=== PATIENT | male | born 1995 | race Caucasian/White ===

== ENCOUNTER 2016-12-13 19:57 | Emergency (ER) | payer BC, OTHER ==
[2016-12-13 20:09] VITALS: BP 126/67; PULSE 89; TEMP 98.2; BMI 27.4
--- NOTE | 2016-12-13 22:00 | PDOC ---
History of Present Illness - General Chief Complaint: Sore Throat Stated Complaint: SORE THROAT Time Seen by Provider: 12/13/16 20:00 - History of Present Illness Initial Comments: This 21-year-old man presents with a four-day history of progressive sore throat. Patient states that he also has some left-sided ear pain/fullness. He had some subjective fever a few days ago which has now resolved ( never measured ). No known exposure to strep pharyngitis. No recent travel. He denies weakness/muscle aches/generalized fatigue. He has not had cough or gastrointestinal issues. Past History - Past Medical History Allergies/Adverse Reactions: Allergies Allergy/AdvReac Type Severity Reaction Status Date / Time No Known Allergies Allergy Verified 12/13/16 20:05 Home Medications: Ambulatory Orders Amoxicillin - [Amoxicillin 500mg Capsule -] 500 mg PO BID #20 capsule 12/13/16 Suicide Attempt (Hx): No Other medical history: denies - Psycho/Social/Smoking Cessation Hx Anxiety: No Suicidal Ideation: No Smoking History: Never smoked Have you smoked in the past 12 months: Yes Number of Cigarettes Smoked Daily: 20 Information on smoking cessation initiated: Yes Hx Alcohol Use: (weekends) Drug/Substance Use Hx: No Substance Use Type: None Review of Systems - Review of Systems Able to Perform ROS?: Yes Comments:: 12 point review of systems is negative except for what is noted in the history of present illness *Physical Exam - Vital Signs Last Vital Signs Temp Pulse Resp BP Pulse Ox 98.2 F 89 18 126/67 100 12/13/16 19:57 12/13/16 19:57 12/13/16 19:57 12/13/16 19:57 12/13/16 19:57 - Physical Exam Comments: GENERAL: Young adult male, alert and oriented 3, speaking in somewhat muffled voice but not drooling; no acute distress HEAD: Normal with no signs of trauma. EYES: PERRLA, EOMI, sclera anicteric, conjunctiva clear. ENT: Ears normal, nares patent Pharynx markedly erythematous with 1+ tonsillar edema bilaterally; exudative patches present (right> left) NECK: Normal range of motion, supple; 1+ mildly tender anterior cervical adenopathy bilaterally; no JVD or masses. LUNGS: Breath sounds equal, clear to auscultation bilaterally. No wheezes, and no crackles. HEART:Regular rate and rhythm, normal S1 and S2 without murmur, rub or gallop. ABDOMEN:.normal bowel sounds No guarding,tenderness or rebound.No masses No distention. EXTREMITIES: Normal range of motion, no edema. No clubbing or cyanosis. No erythema, or tenderness. NEUROLOGICAL: Cranial nerves II through XII grossly intact. Normal speech. No focal neurological deficits. MUSCULOSKELETAL: Back non-tender to palpation, no CVA tenderness SKIN: Warm, Dry, normal turgor, no rashes or lesions noted. ED Treatment Course - ADDITIONAL ORDERS Additional order review: 12/13/16 21:45 Group A Strep Rapid Antigen - Final Throat Medical Decision Making - Medical Decision Making Quick strep/throat culture sent. Quick strep negative. Although quick strep is negative, because of patient's exudative pharyngitis, amoxicillin 500 mg will be started with first dose given here in the emergency room. (Doubt acute infectious mononucleosis with patient's lack of fatigue/ malaise and lack of generalized lymphadenopathy) Full 10 day course of amoxicillin 500 mg twice a day will be sent to patient's pharmacy. Patient will be contacted if throat culture is negative. He will return to the emergency room if he has more severe pain or develops high fever, difficulty swallowing. *DC/Admit/Observation/Transfer Diagnosis at time of Disposition: Acute pharyngitis Qualifiers: Pharyngitis/tonsillitis etiology: unspecified etiology Qualified Code(s): J02.9 - Acute pharyngitis, unspecified - Discharge Dispostion Disposition: HOME Condition at time of disposition: Stable - Prescriptions Prescriptions: Amoxicillin - [Amoxicillin 500mg Capsule -] 500 mg PO BID #20 capsule - Patient Instructions Printed Discharge Instructions: DI for Pharyngitis/Tonsillopharyngitis -- Adult Additional Instructions: Drink plenty of fluids No work for the next 2 days Amoxicillin 500 mg twice a day for 10 days Ibuprofen/naproxen/acetaminophen as needed for pain you will be contacted if throat culture negative for strep See your doctor if throat pain not improved within 2-3 days return to ER if you have difficulty swallowing or develop high fever - Post Discharge Activity Work/School Note: Back to Work
[2016-12-13] MEDS ORDERED: AMOXICILLIN 500 MG CAPSULE (FP) PO ONE (22:19)
[2016-12-13] MEDS ORDERED: AMOXICILLIN 250 MG CAPSULE ONE (22:22)
== END 2016-12-13 22:27 | disposition home or self-care (01) ==
LOC: FER 19:57
DX: J02.9 Acute pharyngitis, unspecified (principal); F17.210 Nicotine dependence, cigarettes, uncomplicated
CPT/HCPCS: 87070; 87430; 99282-25

== ENCOUNTER 2018-08-01 08:48 | Emergency (ER) | payer BC ==
[2018-08-01 09:05] VITALS: BP 145/77; PULSE 80; TEMP 98.2; BMI 27.8
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
[2018-08-01 09:32] LABS: URINE APPEARANCE CLEAR; URINE BILIRUBIN NEGATIVE (<2.0 mg/dL); URINE COLOR LTYELLOW; URINE GLUCOSE (UA) NEGATIVE (NEGATIVE); URINE KETONE NEGATIVE (NEGATIVE); URINE LEUK ESTERASE NEGATIVE (NEGATIVE); URINE NITRITE NEGATIVE (NEGATIVE); URINE PROTEIN NEGATIVE (NEGATIVE); URINE UROBILINOGEN NEGATIVE mg/dL (0.2-1.0)
[2018-08-01] MEDS ORDERED: IBUPROFEN 600 MG TABLET (FP) PO ONE ×2 (09:49→09:50)
== END 2018-08-01 10:03 | disposition home or self-care (01) ==
LOC: JERFT 08:48
DX: S30.0XXA Contusion of lower back and pelvis, initial encounter (principal); S30.1XXA Contusion of abdominal wall, initial encounter; V04.10XA Pedestrian on foot injured in collision with heavy transport vehicle or bus in traffic accident, initial encounter; Y92.414 Local residential or business street as the place of occurrence of the external cause; Y93.89 Activity, other specified; Y99.0 Civilian activity done for income or pay
CPT/HCPCS: 71101-TC-RT-FY; 81003; 99281-25

== ENCOUNTER 2019-04-04 12:04 | Emergency (ER) | payer BC ==
[2019-04-04 12:13] VITALS: BP 140/85; PULSE 96; TEMP 98; BMI 27.8
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
== END 2019-04-04 12:53 | disposition home or self-care (01) ==
LOC: JERFT 12:04
DX: S16.1XXS Strain of muscle, fascia and tendon at neck level, sequela (principal); M54.2 Cervicalgia; M62.838 Other muscle spasm; V89.2XXS Person injured in unspecified motor-vehicle accident, traffic, sequela; F17.210 Nicotine dependence, cigarettes, uncomplicated
CPT/HCPCS: 99281-25

== ENCOUNTER 2019-08-10 18:30 | Emergency (ER) | payer OTHER ==
--- NOTE | 2019-08-10 18:47 | PDOC ---
Rapid Medical Evaluation Time Seen by Provider: 08/10/19 18:44 Medical Evaluation: Allergies Allergy/AdvReac Type Severity Reaction Status Date / Time No Known Allergies Allergy Verified 04/04/19 12:13 08/10/19 18:44 I have performed a brief in-person evaluation of this patient. The patient presents with a chief complaint of: Pain to R forearm s/p FOOSH injury Pertinent physical exam findings: unable to assess, patient states he cannot remove arm from sleeve due to pain I have ordered the following: wrist/forearm/elbow xray The patient will proceed to the ED for further evaluation. Discharge Disposition - Diagnosis Arm pain - Referrals - Patient Instructions - Post Discharge Activity
[2019-08-10 18:48] VITALS: BP 119/64; PULSE 94; TEMP 98; BMI 27.8
[2019-08-10] MEDS ORDERED: KETOROLAC TROMETHAMINE 30 MG/1 ML VIAL IM ONE (19:45)
[2019-08-10] MEDS ORDERED: KETOROLAC TROMETHAMINE 30 MG/1 ML VIAL ONE (19:46)
--- NOTE | 2019-08-10 19:49 | PDOC ---
History of Present Illness - General Chief Complaint: Bone Injury Stated Complaint: RT ELBOW PAIN Time Seen by Provider: 08/10/19 18:44 History Source: Patient Exam Limitations: Clinical Condition - History of Present Illness Initial Comments: 08/10/19 20:02 Patient with no significant past medical history present with complaint of pain to right elbow status post slip and fall over a shovel while at work and falling on outstretched hand prior to arrival. Denies hitting head or loss of consciousness. Patient is supporting right elbow with complaint of pain to dorsal aspect of right elbow. Denies any other symptoms Occurred: reports: just prior to arrival Past History - Past Medical History Allergies/Adverse Reactions: Allergies Allergy/AdvReac Type Severity Reaction Status Date / Time No Known Allergies Allergy Verified 04/04/19 12:13 Home Medications: Ambulatory Orders Ibuprofen 800 mg PO Q8H PRN #20 tablet 08/10/19 COPD: No - Immunization History Immunization Up to Date: No - Psycho Social/Smoking Cessation Hx Smoking History: Never smoked Have you smoked in the past 12 months: No Number of Cigarettes Smoked Daily: 10 Information on smoking cessation initiated: No Hx Alcohol Use: No Drug/Substance Use Hx: No Substance Use Type: None Review of Systems - Review of Systems Able to Perform ROS?: Yes Is the patient limited Wolof proficient: No Constitutional: No: Chills, Fever, Malaise HEENTM: No: Symptoms Reported, See HPI, Eye Pain, Blurred Vision, Tearing, Recent change in vision, Double Vision, Cataracts, Ear Pain, Ocular Prothesis, Ear Discharge, Nose Pain, Nose Congestion, Tinnitus, Nose Bleeding, Hearing Loss, Throat Pain, Throat Swelling, Mouth Pain, Dental Problems, Difficulty Swallowing, Mouth Swelling, Other Respiratory: No: Symptoms reported, See HPI, Cough, Orthopnea, Shortness of Breath, SOB with Exertion, SOB at Rest, Stridor, Wheezing, Productive cough, Hemoptysis, Other ABD/GI: No: Symptoms Reported Musculoskeletal: Yes: Symptoms Reported, See HPI, Joint Pain (pain to right elbow), Joint Swelling (righ elbow), Muscle Pain (pain to right forearm) Integumentary: No: Symptoms Reported, Bruising Neurological: No: Symptoms reported All Other Systems: Reviewed and Negative *Physical Exam - Vital Signs Last Vital Signs Temp Pulse Resp BP Pulse Ox 98.0 F 94 H 18 119/64 100 03/05/20 18:46 08/10/19 18:46 08/10/19 18:46 08/10/19 18:46 08/10/19 18:46 - Physical Exam 08/10/19 20:06 GENERAL: Well developed, well nourished. Awake and alert in mild acute distress supporting right elbow with left hand. PULMONARY: No evidence of respiratory distress. MUSCULOSKELETAL : Moderate tenderness over olecranon of right elbow. No tenderness to right wrist or hands. Mild tenderness to dorsal aspect of right proximal forearm. No visible deformity SKIN: Warm and dry. Normal capillary refill. Mild swelling to olecranon of right elbow. No ecchymosis NEUROLOGICAL: Alert, awake, appropriate. No motor deficits in the lower extremities. Gait is normal without ataxia. PSYCHIATRIC: Cooperative. Good eye contact. Appropriate mood and affect. General Appearance: Yes: Nourished, Appropriately Dressed, Mild Distress Procedures - Splinting Splint Location: Right: Elbow Pre-Proc Neuro Vasc Exam: normal Hand-Made Type: orthoglass Splint Type: Yes: Long Arm Post-Proc Neuro Vasc Exam: normal Kash Bandage: yes, 3" Sling: Yes Complications: No Post splint xray: No Good repositioning: Yes Medical Decision Making - Medical Decision Making 08/10/19 20:03 Patient with no significant past medical history present with complaint of pain to right elbow status post slip and fall over a shovel while at work and falling on outstretched hand prior to arrival. Denies hitting head or loss of consciousness. Patient is supporting right elbow with complaint of pain to dorsal aspect of right elbow. Denies any other symptoms Exam significant for moderate tenderness to olecranon of right elbow. No tenderness to right wrist or hand. Mild tenderness over dorsal aspect of right forearm. No visible deformity. Patient supporting right elbow in pain. X-ray of right hand, forearm and elbow shows hairline radial head fracture with sail sign. No acute deformity or fracture to hand or wrist. Patient splinted in posterior short arm splint in flexion and given sling to help support elbow. Toradol 30 mg given for pain. Patient stable for discharge on Motrin 800 PRN for pain with advised to keep hand elevated and follow-up with orthopedics for radial head fracture Discharge - Discharge Information Problems reviewed: Yes Clinical Impression/Diagnosis: Arm pain Qualifiers: Laterality: right Qualified Code(s): M79.601 - Pain in right arm Radial head fracture, closed Qualifiers: Encounter type: initial encounter Fracture alignment: nondisplaced Laterality: right Qualified Code(s): S52.124A - Nondisplaced fracture of head of right radius, initial encounter for closed fracture Condition: Stable Disposition: HOME - Admission No - Additional Discharge Information Prescriptions: Ibuprofen 800 mg PO Q8H PRN #20 tablet PRN Reason: pain - Follow up/Referral Referrals: Reyes Morales DO [Staff Physician] - - Patient Discharge Instructions Patient Printed Discharge Instructions: DI for Elbow Fracture Additional Instructions: X-ray of your elbow shows hairline radial head nondisplaced fracture. Keep provided splint on until completed follow-up. Take prescribed Motrin as needed for pain. Use provided sling to help support right elbow. Follow-up referred to orthopedics - Post Discharge Activity Work/Back to School Note: Back to Work
== END 2019-08-10 20:05 | disposition home or self-care (01) ==
LOC: JERFT 18:30
PROC: 2W38X1Z Immobilization of Right Upper Extremity using Splint (ICD-10-PCS; principal; 2019-08-10)
DX: S52.124A Nondisplaced fracture of head of right radius, initial encounter for closed fracture (principal); W18.09XA Striking against other object with subsequent fall, initial encounter; Y93.89 Activity, other specified; Y92.69 Other specified industrial and construction area as the place of occurrence of the external cause; Y99.0 Civilian activity done for income or pay
CPT/HCPCS: 73070-TC-RT-FY; 73090-TC-RT-FY; 73110-TC-RT-FY; 73130-TC-RT-FY; 99284-25

== ENCOUNTER 2022-05-31 17:37 | Emergency (ER) | payer SELFPAY ==
[2022-05-31 18:02] VITALS: BP 123/70; PULSE 93; RESP 18; TEMP 99.4; BMI 29.2
[2022-05-31] MEDS ORDERED: IBUPROFEN 400 MG TABLET (FP) PO ONE ×2 (18:57→19:16)
== END 2022-05-31 20:23 | disposition home or self-care (01) ==
LOC: JER 17:37
DX: U07.1 COVID-19 (principal)
CPT/HCPCS: 0241U-QW; 99283-25

== ENCOUNTER 2022-08-30 16:02 | Inpatient (IN) | payer BC ==
[2022-08-30] MEDS ORDERED: SODIUM CHLORIDE 0.9% 1000 ML INFUS.BAG IV ONE (16:35)
[2022-08-30] MEDS ORDERED: dilTIAZem HCL 50 MG/10 ML - 10 ML VIAL IVPUSH ONE ×2 (16:35→18:41)
[2022-08-30] MEDS ORDERED: dilTIAZem HCL 50 MG/10 ML - 10 ML VIAL ONE (16:41)
[2022-08-30] MEDS ORDERED: dilTIAZem HCL 30 MG TABLET PO ONE (16:52)
[2022-08-30 16:54] LABS: BASO % 0.4 % (0-2.0); HEMATOCRIT 51.2 % (35.4-49); HEMOGLOBIN 17.6 GM/dL (11.7-16.9); MCH 30.2 pg (25.7-33.7); MCHC 34.5 g/dl (32.0-35.9); MEAN CELL VOLUME 87.7 fl (80-96); MEAN PLT VOLUME 9.3 fl (7.5-11.1); MONO % 7.8 % (3.8-10.2); NEUT % 76.8 % (42.8-82.8); PLATELET COUNT 151 10^3/uL (134-434); RBC 5.83 M/mm3 (4.00-5.60); RDW 13.2 % (11.9-15.9)
[2022-08-30] MEDS ORDERED: dilTIAZem HCL 30 MG TABLET ONE ×2 (16:58→23:00)
[2022-08-30 17:04] LABS: INR 0.97 (0.83-1.09); PROTHROMBIN TIME (PATIENT) 11.3 SEC (9.7-13.0)
[2022-08-30 17:06] LABS: CALCIUM 9.4 mg/dL (8.5-10.1)
[2022-08-30 17:07] LABS: ACTIVATED PTT 29.9 SECONDS (25.2-36.5); ALBUMIN 4.1 g/dl (3.4-5.0); BLOOD UREA NITROGEN 11.3 mg/dL (7-18); MAGNESIUM 2.3 mg/dL (1.8-2.4)
[2022-08-30 17:10] LABS: CREATININE 0.8 mg/dL (0.55-1.3)
[2022-08-30 17:12] LABS: BILIRUBIN,TOTAL 1.2 mg/dL (0.2-1); TOT PROT 7.8 g/dl (6.4-8.2)
[2022-08-30 22:06] LABS: URINE APPEARANCE CLEAR; URINE BILIRUBIN NEGATIVE (NEGATIVE); URINE COLOR YELLOW; URINE GLUCOSE (UA) NEGATIVE (NEGATIVE); URINE KETONE NEGATIVE (NEGATIVE); URINE LEUK ESTERASE NEGATIVE (NEGATIVE); URINE NITRITE NEGATIVE (NEGATIVE); URINE PROTEIN NEGATIVE (NEGATIVE); URINE UROBILINOGEN 0.2 mg/dL (0.2-1.0)
[2022-08-30 22:17] LABS: OPIATES, URI NEGATIVE (NEGATIVE); URINE AMPHETAMINES NEGATIVE (NEGATIVE)
[2022-08-30 22:19] LABS: METHADONE, UR NEGATIVE (NEGATIVE); URINE BENZODIAZEPINES NEGATIVE (NEGATIVE)
[2022-08-30 22:23] LABS: PHENCYCLIDINE,URINE NEGATIVE (NEGATIVE)
[2022-08-30 22:24] LABS: COCAINE, UR POSITIVE (NEGATIVE); URINE BARBITURATES NEGATIVE (NEGATIVE)
[2022-08-30] MEDS: dilTIAZem HCL 30 MG TABLET PO SCH (23:50)
[2022-08-31] MEDS ORDERED: dilTIAZem HCL 50 MG/10 ML - 10 ML VIAL IVPUSH ONE (00:30)
[2022-08-31] MEDS ORDERED: dilTIAZem HCL 50 MG/10 ML - 10 ML VIAL IVPUSH PRN (01:00)
[2022-08-31 03:41] VITALS: RESP 18
[2022-08-31] MEDS: dilTIAZem HCL 30 MG TABLET PO SCH (06:29)
[2022-08-31 06:35] VITALS: PULSE 78
[2022-08-31 08:44] LABS: BASO % 0.5 % (0-2.0); EOS % 2.6 % (0-4.5); HEMATOCRIT 45.8 % (35.4-49); HEMOGLOBIN 16.1 GM/dL (11.7-16.9); LYMPH % 21.9 % (8-40); MCH 30.6 pg (25.7-33.7); MCHC 35.1 g/dl (32.0-35.9); MEAN PLT VOLUME 9.3 fl (7.5-11.1); MONO % 8.1 % (3.8-10.2); NEUT % 66.9 % (42.8-82.8); PLATELET COUNT 122 10^3/uL (134-434); RBC 5.27 M/mm3 (4.00-5.60); RDW 13.2 % (11.9-15.9); WHITE BLOOD COUNT 8.3 K/mm3 (4.0-10.0)
[2022-08-31 09:06] LABS: ALBUMIN 3.5 g/dl (3.4-5.0)
[2022-08-31 09:09] LABS: CREATININE 0.8 mg/dL (0.55-1.3); PHOSPHOROUS 3.6 mg/dL (2.5-4.9)
[2022-08-31 09:10] LABS: BILIRUBIN,TOTAL 1.4 mg/dL (0.2-1); BLOOD UREA NITROGEN 10.6 mg/dL (7-18); MAGNESIUM 2.1 mg/dL (1.8-2.4); TOT PROT 6.6 g/dl (6.4-8.2)
[2022-08-31] MEDS ORDERED: NICOTINE 21 MG/24 HOURS TOPICAL PATCH TD SCH (10:00)
[2022-08-31] MEDS ORDERED: ENOXAPARIN NA (PORCINE) 40 MG/0.4 ML DISP.SYRIN SQ SCH (10:00)
[2022-08-31 10:47] VITALS: BP 122/77; TEMP 97.8
[2022-08-31] MEDS ORDERED: metoPROLOL SUCCINATE 25 MG TAB.SR.24H (FP) PO SCH (11:45)
== END 2022-08-31 18:20 | disposition home or self-care (01) | DRG 310 ==
LOC: JER 16:02 → JERBED 17:41 → OBSVTOIN 20:00 → J4W 08-31 00:26
PROVIDERS: ADMIT Internal Medicine; ATTEND Family Medicine
DX: I48.0 Paroxysmal atrial fibrillation (principal); F17.210 Nicotine dependence, cigarettes, uncomplicated; E80.6 Other disorders of bilirubin metabolism; F19.10 Other psychoactive substance abuse, uncomplicated; F14.10 Cocaine abuse, uncomplicated
CPT/HCPCS: 36415; 71045-TC-FY; 80053; 80061; 80307; 81003; 83735; 84100; 84439; 84443; 84484; 85025; 85610; 85730; 93005; 93010; 93306-TC; 99285-25; C9803-CS; G0378; U0003; U0005

== ENCOUNTER 2022-09-22 18:46 | Emergency (ER) | payer BC ==
[2022-09-22 19:04] VITALS: BP 117/71; PULSE 71; RESP 20; TEMP 98.2; BMI 29.9
== END 2022-09-22 22:42 | disposition home or self-care (01) ==
LOC: JER 18:46 → JERFT 18:46
DX: R06.02 Shortness of breath (principal); R53.83 Other fatigue; I49.9 Cardiac arrhythmia, unspecified
CPT/HCPCS: 71046-TC-FY; 93005; 93010; 99284-25

== ENCOUNTER 2022-10-26 23:31 | Emergency (ER) | payer BC ==
[2022-10-26 23:38] VITALS: BP 130/62; PULSE 57; RESP 18; TEMP 97.9; BMI 29.9
== END 2022-10-27 02:05 | disposition home or self-care (01) ==
LOC: JER 23:31
DX: R20.2 Paresthesia of skin (principal)
CPT/HCPCS: 93005; 93010; 99283-25